=== PATIENT | female | born 1955 | race Caucasian/White ===

== ENCOUNTER 2021-12-26 07:51 | Emergency (ER) | payer BC, SELFPAY ==
[2021-12-26] VITALS (9 sets, daily range): BP systolic 121–149; BP diastolic 72–89; PULSE 70–79; RESP 16–18; TEMP 36.3; O2SAT 95–98; BMI 35.5
--- NOTE | 2021-12-26 08:30 | CRLHL7_ITS ---
For Patients: As a result of the Century Cures Act, medical imaging exams and procedure reports are released immediately into your electronic medical record. You may view this report before your referring provider. If you have questions, please contact your health care provider. INDICATION: Chest pain. TECHNIQUE: Two-view chest. COMPARISON: February 15, 2021. FINDINGS: Both lungs are expanded and clear. No pneumothoraces nodules or infiltrates. Normal heart size and pulmonary vascularity. The included skeleton is unremarkable. Surgical clips in the right upper quadrant. IMPRESSION: Negative chest. No change. Dictated by Cam Chang MD @ 12/26/2021 9:30:06 AM (Electronically Signed)
[2021-12-26] MEDS: ASPIRIN 81 MG TAB.CHEW 162 MG PO (08:50)
[2021-12-26 09:12] LABS: Basophils Absolute Auto 0.03 K/uL (0.00-0.30); Basophils Percent Auto 0.4 % (0.0-3.0); Eosinophils Absolute Auto 0.33 K/uL (0.00-0.50); Eosinophils Percent Auto 4.3 % (0.0-7.0); Hemoglobin* 12.8 gm/dL (12.0-16.0); Immature Granulocytes Abs Auto 0.01 K/uL (0.00-0.30); Lymphocytes Absolute Auto 2.41 K/uL (0.90-2.90); Lymphocytes Percent Auto 31.2 % (20-44); Mean Corpuscular HGB Conc 31 gm/dL (32-36); Mean Corpuscular Hemoglobin 27 pg (26-34); Mean Corpuscular Volume 87 fL (80-100); Monocytes Percent Auto 7.5 % (0.0-11.0); Neutrophils Absolute Auto 4.36 K/uL (1.7-7.0); Neutrophils Percent Auto 56.5 % (42.0-72.0); Platelet Count* 251 K/uL (140-440); RDW Coefficient of Variation % 13.9 % (11.5-15.5); Red Blood Count 4.69 m/uL (4.00-5.20); White Blood Count* 7.72 K/uL (4.50-11.00)
--- NOTE | 2021-12-26 09:12 | ED_ITS ---
HPI - Chest Pain General Date Seen: 12/26/21 Chief Complaint: Unspecified Complaint, Adult Stated Complaint: Chest sensation Time Seen by Provider: 12/26/21 07:54 Source: patient Mode of arrival: ambulatory Limitations: no limitations History of Present Illness HPI narrative: Patient is a 66-year-old female presents here with the history of atypical chest discomfort. She describes the feeling in her chest, she has had for weeks now, is not related to exertion, but seems to come on more at rest her least that is when she notices it. She describes it possibly across her upper chest region, she does not describe any radiation to her neck back or shoulders, it is not a pressure sensation, it is just a feeling that she gets. She does not really exert herself with exercise or other issues palm, for this she has walked is probably from her house to her car in the last couple weeks. This is not atypical for her, but she does not notices discomfort when this occurs. She notices most at night when she lays down. Denies any leg swelling, nausea vomiting diaphoresis, she has no personal history of heart disease, there is no family history of heart disease, she has not been told she has hypertension or diabetes. She is a nonsmoker. No recent travel, no leg swelling, cough no hemoptysis, no fevers chills or sweats, MD complaint: chest discomfort Prior episodes: No Onset: during rest Pain location: parasternal Pain radiation: none Severity: moderate Quality: other Relieving factors: nothing Exacerbating factors: nothing Associated symptoms: other Treatment prior to arrival: other Risk Factors Coronary artery disease risk factors: none Thoracic aortic dissection risk factors: none Related Data On Oral Contraceptives: No Home Medications Medication Instructions Recorded Confirmed amitriptyline 25 mg tablet mg 12/26/21 atorvastatin 20 mg tablet mg 12/26/21 cetirizine 10 mg tablet mg 12/26/21 cholecalciferol (vitamin D3) 50 12/26/21 mcg (2,000 unit) capsule peg 400-propylene glycol (PF) 0.4 drp OPHTHALMIC (EYE) 12/26/21 %-0.3 % eye drops in a dropperette (Systane Ultra (PF)) polyethylene glycol 3350 17 g 12/26/21 gram/dose oral powder Allergies Allergy/AdvReac Type Severity Reaction Status Date / Time Sulfa (Sulfonamide Allergy Verified 12/26/21 08:15 Antibiotics) Review of Systems Status of ROS Reports: 10 or more systems reviewed and unremarkable except as noted in History and below [facility] Social History Smoking Status: Never smoker How often do you have a drink containing alcohol: never AUDIT-C Alcohol total score: 0 Non-prescribed substance use: denies use service: No Exam Const Vital Signs, click to edit/add: Vital Signs - 24 hr 12/26/21 08:00 12/26/21 08:30 12/26/21 08:50 Temperature 97.3 F L Pulse Rate [Right Pulse Oximeter] 79 75 78 Respiratory Rate 18 18 16 Blood Pressure [Left Upper Arm] 130/89 121/78 140/83 H Pulse Oximetry 96 95 96 12/26/21 09:00 12/26/21 09:30 12/26/21 10:00 Temperature Pulse Rate [Right Pulse Oximeter] 79 73 70 Respiratory Rate 18 18 18 Blood Pressure [Left Upper Arm] 149/76 H 133/76 133/75 Pulse Oximetry 98 96 95 12/26/21 10:30 12/26/21 11:00 12/26/21 11:40 Temperature Pulse Rate [Right Pulse Oximeter] 74 76 77 Respiratory Rate 18 18 18 Blood Pressure [Left Upper Arm] 129/75 128/72 125/78 Pulse Oximetry 96 96 Documenting provider has reviewed patient's vital signs: yes Common normals: no apparent distress, average body habitus, oriented x3, no limitations, healthy appearing, alert and well nourished General appearance: cooperative and comfortable [facility] Common normals: normocephalic, head/scalp atraumatic, hearing grossly normal bilaterally, external ears normal, EAC's normal, TM's normal bilaterally, external nose normal, nasal mucous membranes and turbinates normal, moist oral mucous membranes, oropharynx normal, dentition normal and gingiva normal Head and scalp: normocephalic and atraumatic Nose: external nose normal and nasal mucous membranes and turbinates normal External ear: external ears normal External auditory canal: EAC's normal Tympanic membrane: TM's normal bilaterally Eye Common normals: PERRL, EOMs intact bilaterally, conjunctivae normal, no scleral icterus, no papilledema, normal visual peck by confrontation and fundi normal bilaterally Conjunctiva: conjunctiva(e) normal Pupil: PERRL Direct Ophthalmoscopy: no papilledema and fundi normal bilaterally Neck & C-Spine Common normals: full ROM, no lymphadenopathy, supple, no meningeal signs, no JVD, thyroid normal and no carotid bruits Thyroid: thyroid normal Chest Common normals: inspection of chest normal, palpation of chest normal, inspection of breasts normal and palpation of breasts normal Resp Common normals: normal respiratory effort, no retractions, no use of accessory muscles, clear to auscultation bilaterally and percussion normal Auscultation: clear to auscultation bilaterally Percussion: percussion normal Cardio Common normals: no JVD, regular rate, regular rhythm, S1 normal heart sound, S2 normal heart sound, no gallops, no clicks, no murmurs, no rub and peripheral pulses 2+ throughout Rate: regular rate Rhythm: regular rhythm Heart sounds: S1 normal and S2 normal Peripheral pulses: pulses 2+ throughout Extremity Common normals: normal to inspection, full ROM, normal capillary refill, no joint enlargement, no clubbing, cyanosis or edema, no calf tenderness and no pedal edema Neuro Common normals: oriented x3, CN's II-XII intact bilaterally, moves all extremities, no focal motor deficits, no sensory deficits noted, deep tendon reflexes 2+ bilaterally and gait normal Sensorium/orientation: alert Meningeal signs: no meningeal signs Psych Common normals: mental status grossly normal, thought process normal, cooperative, affect normal, speech normal, activity/motor behavior normal, d enies hallucinations, denies homicidal ideation and denies suicidal ideation Speech: normal speech Thought process: normal thought process Skin Common normals: no rashes or lesions noted, no wounds, skin turgor normal, no jaundice, no petechiae and no mottling General skin exam: no rashes or lesions noted and turgor normal Course Course Hospital Course: Patient remained pain-free the entire time here, 2 troponins were negative, D- dimer was slightly elevated but when age adjusted was normal. EKG was non acute, CBC was normal, basic metabolic profile was otherwise normal, viral testing was negative. I discussed with the patient, she should be on aspirin daily 81 mg, at least until we get a stress test. Discussed with her long-time whether to see her primary care verses is we can arrange it here. The and she really could make a decision and I elected to order a Lexiscan here. I think this will give us better delineation then a stress echo, as I would worry that she would not be able to get her heart rate up to the needed number. She has no contraindications to this. Over signs symptoms of worsening, she will re- presented, of note her heart score is low. Vital Signs Vital signs: Initial Vital Signs Temperature 97.3 F L 12/26/21 08:00 Temperature Source Temporal Artery Scan 12/26/21 08:00 Pulse Rate 79 12/26/21 08:00 Respiratory Rate 18 12/26/21 08:00 Blood Pressure 130/89 12/26/21 08:00 Blood Pressure Mean 102 12/26/21 08:00 Blood Pressure Position Sitting 12/26/21 08:00 Pulse Oximetry 96 12/26/21 08:00 Oxygen Delivery Method 12/26/21 08:00 Vital Signs Temperature 97.3 F L 12/26/21 08:00 Pulse Rate 79 12/26/21 08:00 Respiratory Rate 18 12/26/21 08:00 Blood Pressure 130/89 12/26/21 08:00 Pulse Oximetry 96 12/26/21 08:00 Temperature 97.3 F L 12/26/21 08:00 Pulse Rate 77 12/26/21 11:40 Respiratory Rate 18 12/26/21 11:40 Blood Pressure 125/78 12/26/21 11:40 Pulse Oximetry 96 12/26/21 11:00 MDM - Chest Pain MDM Narrative Medical decision making narrative: During the evaluation of this patient I considered multiple differential diagnosis is. The life-threatening differential diagnosis include coronary disease/[place], pulmonary embolism, pneumothorax, pneumonia, and aortic dissection. Other differential diagnosis included but were not limited to pericarditis, myocarditis, chest wall pain, GERD, esophageal rupture, rib fracture contusion, pleurisy, as well as other etiologies. I think it be reasonable to discharge her at this point we will order a Lexiscan is no patient, she will continue on the aspirin 81 mg and and the results will be sent to primary care physician Dr. Filomena Evangelista at the [facility] Medical Records Data Attestation: I reviewed the patient's medical records. Lab Data Attestation: I reviewed the patient's lab results. Labs: Lab Results 12/26/21 12/26/21 12/26/21 Range/Units 08:50 08:50 08:50 WBC 7.72 (4.50-11.00) K/uL RBC 4.69 (4.00-5.20) m/uL Hgb 12.8 (12.0-16.0) gm/dL Hct 41.0 (33.0-51.0) % MCV 87 (80-100) fL MCH 27 (26-34) pg MCHC 31 L (32-36) gm/dL RDW Coeff of Jose 13.9 (11.5-15.5) % Plt Count 251 (140-440) K/uL Neut % (Auto) 56.5 (42.0-72.0) % Lymph % (Auto) 31.2 (20-44) % Davis % (Auto) 7.5 (0.0-11.0) % Eos % (Auto) 4.3 (0.0-7.0) % Baso % (Auto) 0.4 (0.0-3.0) % Neut # (Auto) 4.36 (1.7-7.0) K/uL Lymph # (Auto) 2.41 (0.90-2.90) K/uL Davis # (Auto) 0.60 (0.00-0.90) K/UL Eos # (Auto) 0.33 (0.00-0.50) K/uL Baso # (Auto) 0.03 (0.00-0.30) K/uL Abs Immat Gran (auto) 0.01 (0.00-0.30) K/uL INR (0.91-1.10) APTT (23-33) Seconds D-Dimer Quant (PE/DVT) 0.54 H (0.00-0.50) ug/ml Sodium 140 (135-149) mmol/L Potassium 4.3 (3.6-5.1) mmol/L Chloride 108 (96-114) mmol/L Carbon Dioxide 26 (20-32) mmol/L BUN 12 (7-30) mg/dL Creatinine 0.7 (0.5-1.5) mg/dL Estimated Creat Clear 43.77 Estimated GFR 95 ml/min Glucose 99 (60-115) mg/dL Calcium 9.3 (8.4-10.6) mg/dL NT-Pro-B Natriuret Pep (0-125) PG/mL SARS-CoV-2 (PCR) (Negative) Influenza Type A (PCR) (Negative) Influenza Type B (PCR) (Negative) RSV (PCR) (Negative) POC Troponin I (0.01-0.04) ng/ml 12/26/21 12/26/21 12/26/21 Range/Units 08:50 08:50 08:50 WBC (4.50-11.00) K/uL RBC (4.00-5.20) m/uL Hgb (12.0-16.0) gm/dL Hct (33.0-51.0) % MCV (80-100) fL MCH (26-34) pg MCHC (32-36) gm/dL RDW Coeff of Jose (11.5-15.5) % Plt Count (140-440) K/uL Neut % (Auto) (42.0-72.0) % Lymph % (Auto) (20-44) % Davis % (Auto) (0.0-11.0) % Eos % (Auto) (0.0-7.0) % Baso % (Auto) (0.0-3.0) % Neut # (Auto) (1.7-7.0) K/uL Lymph # (Auto) (0.90-2.90) K/uL Davis # (Auto) (0.00-0.90) K/UL Eos # (Auto) (0.00-0.50) K/uL Baso # (Auto) (0.00-0.30) K/uL Abs Immat Gran (auto) (0.00-0.30) K/uL INR 0.88 L (0.91-1.10) APTT 26 (23-33) Seconds D-Dimer Quant (PE/DVT) (0.00-0.50) ug/ml Sodium (135-149) mmol/L Potassium (3.6-5.1) mmol/L Chloride (96-114) mmol/L Carbon Dioxide (20-32) mmol/L BUN (7-30) mg/dL Creatinine (0.5-1.5) mg/dL Estimated Creat Clear Estimated GFR ml/min Glucose (60-115) mg/dL Calcium (8.4-10.6) mg/dL NT-Pro-B Natriuret Pep 49 (0-125) PG/mL SARS-CoV-2 (PCR) Negative SARS-CoV-2 (Negative) Influenza Type A (PCR) Negative PCR FLU A (Negative) Influenza Type B (PCR) Negative PCR FLU B (Negative) RSV (PCR) Negative PCR RSV (Negative) POC Troponin I (0.01-0.04) ng/ml 12/26/21 12/26/21 Range/Units 08:50 10:55 WBC (4.50-11.00) K/uL RBC (4.00-5.20) m/uL Hgb (12.0-16.0) gm/dL Hct (33.0-51.0) % MCV (80-100) fL MCH (26-34) pg MCHC (32-36) gm/dL RDW Coeff of Jose (11.5-15.5) % Plt Count (140-440) K/uL Neut % (Auto) (42.0-72.0) % Lymph % (Auto) (20-44) % Davis % (Auto) (0.0-11.0) % Eos % (Auto) (0.0-7.0) % Baso % (Auto) (0.0-3.0) % Neut # (Auto) (1.7-7.0) K/uL Lymph # (Auto) (0.90-2.90) K/uL Davis # (Auto) (0.00-0.90) K/UL Eos # (Auto) (0.00-0.50) K/uL Baso # (Auto) (0.00-0.30) K/uL Abs Immat Gran (auto) (0.00-0.30) K/uL INR (0.91-1.10) APTT (23-33) Seconds D-Dimer Quant (PE/DVT) (0.00-0.50) ug/ml Sodium (135-149) mmol/L Potassium (3.6-5.1) mmol/L Chloride (96-114) mmol/L Carbon Dioxide (20-32) mmol/L BUN (7-30) mg/dL Creatinine (0.5-1.5) mg/dL Estimated Creat Clear Estimated GFR ml/min Glucose (60-115) mg/dL Calcium (8.4-10.6) mg/dL NT-Pro-B Natriuret Pep (0-125) PG/mL SARS-CoV-2 (PCR) (Negative) Influenza Type A (PCR) (Negative) Influenza Type B (PCR) (Negative) RSV (PCR) (Negative) POC Troponin I 0.00 L 0.00 L (0.01-0.04) ng/ml Imaging Data Chest x-ray: My impression: Chest x-ray shows nothing acute. Radiologist's impression: Patient: PUNEET GODFREY Facility:?[facility] Patient ID:?[id number] Site Patient ID:?[id number]. Site :?[id number] Study:?XRay Chest 2v-12/26/2021 9:24:02 AM Ordering Physician:Bret Harris Final Report: INDICATION: Chest pain. TECHNIQUE: Two-view chest. COMPARISON: February 15, 2021. FINDINGS: Both lungs are expanded and clear. No pneumothoraces nodules or infiltrates. Normal heart size and pulmonary vascularity. The included skeleton is unremarkable. Surgical clips in the right upper quadrant. IMPRESSION: Negative chest. No change. Dictated by Cam Chang MD @ 12/26/2021 9:30:06 AM (Electronic Signature) ECG Data ECG interpretation date: 12/26/21 Prior ECG tracings: not available for review Interpretation: EKG shows normal sinus rhythm normal EKG with no acute ST wave changes. Discharge Plan Discharge Clinical Impression: Chest pain Patient Disposition: Home, Self-Care Condition: Stable Instructions: Chest Pain (ED) Additional Instructions: Home, rest, easy activity, aspirin 81 mg a day. Outpatient appointment for Maureen done, follow-up with her primary care physician after this is complete. As the results will flow there. Here if increasing chest pain shortness of breath or other signs and symptoms. Activity Level: No strenuous activity Prescriptions: No Action atorvastatin 20 mg tablet 0RF cetirizine 10 mg tablet 0RF amitriptyline 25 mg tablet 0RF polyethylene glycol 3350 17 gram/dose powder 0RF Systane Ultra (PF) 0.4-0.3 % dropperette OPHTHALMIC (EYE) 0RF Label Comments: INSTILL 1 DROP INTO EACH EYE FOUR TIMES A DAY OR NEEDED cholecalciferol (vitamin D3) 50 mcg (2,000 unit) capsule 0RF Label Comments: TAKE ONE CAPSULE BY MOUTH ONE TIME DAILY Follow Up/Referrals: Generic,Amb Provider [Staff Physician] - Filomena Evangelista PA [Primary Care Provider] - Stand Alone Forms: [facility] Info Instructions
[2021-12-26 09:17] LABS: Slide Review Reflex No
[2021-12-26 09:31] LABS: INR 0.88 (0.91-1.10); Prothrombin Time 12.3 Seconds
[2021-12-26 09:32] LABS: Partial Thromboplastin Time* 26 Seconds (23-33)
[2021-12-26 09:34] LABS: Chloride* 108 mmol/L (96-114); Potassium* 4.3 mmol/L (3.6-5.1); Sodium* 140 mmol/L (135-149)
[2021-12-26 09:37] LABS: Blood Urea Nitrogen* 12 mg/dL (7-30); Carbon Dioxide* 26 mmol/L (20-32); Creatinine* 0.7 mg/dL (0.5-1.5); Est. Creatinine Clearance* 43.77; Estimated Glomerular Filt Rate 95 ml/min
[2021-12-26 09:38] LABS: Calcium* 9.3 mg/dL (8.4-10.6); Glucose* 99 mg/dL (60-115)
[2021-12-26 09:45] LABS: NT Pro B Type NatriureticPept* 49 PG/mL (0-125)
[2021-12-26 09:49] LABS: D Dimer Quantitative* 0.54 ug/ml (0.00-0.50); PCR FLU A Negative PCR FLU A (Negative); PCR FLU B Negative PCR FLU B (Negative); PCR RSV Negative PCR RSV (Negative)
[2021-12-26 09:51] LABS: SARS PCR* Negative SARS-CoV-2 (Negative)
--- NOTE | 2021-12-26 10:58 | PC.NURSE ---
second trop running per order verbal Dr Alcazar
== END 2021-12-26 11:44 | disposition home or self-care (01) ==
PROVIDERS: Emergency Provider Family Medicine; PCP Physician Assistant
DX: R07.9 Chest pain, unspecified (principal)
CPT/HCPCS: 36415; 71046; 80048; 83880; 84484; 85025; 85379; 85610; 85730; 87502; 87634; 87635; 93005; 99285; A9270

== ENCOUNTER 2022-01-09 20:38 | Outpatient (REF) | payer BC, SELFPAY ==
[2022-01-09 21:19] LABS: SARS PCR* Negative SARS-CoV-2 (Negative)
== END 2022-01-09 20:39 | disposition home or self-care (01) ==
LOC: NPINS 20:38
PROVIDERS: PCP Physician Assistant; Visit Provider Internal Medicine
DX: Z20.822 Contact with and (suspected) exposure to COVID-19 (principal)
CPT/HCPCS: 87635

== ENCOUNTER 2022-01-12 21:00 | Outpatient (CLI) | payer BC, SELFPAY | END 2022-01-12 21:01 | disposition home or self-care (01) | LOC: SLEEP 06-16 10:23 | PROVIDERS: PCP Physician Assistant; Visit Provider Nurse Practitioner | DX: R06.83 Snoring (principal); G47.61 Periodic limb movement disorder; R53.83 Other fatigue; Z86.69 Personal history of other diseases of the nervous system and sense organs | CPT/HCPCS: 95810 ==

== ENCOUNTER 2023-02-17 22:40 | Emergency (ER) | payer BC, SELFPAY ==
[2023-02-17 23:06] VITALS: BP 132/83; PULSE 93; TEMP 36.1; O2SAT 97; BMI 34.8
[2023-02-17 23:11] VITALS: RESP 20
--- NOTE | 2023-02-17 23:22 | ED.GENADULT ---
HPI - General Adult General Chief complaint: Skin/Abscess/Foreign Body Stated complaint: needs wound checked Time Seen by Provider: 02/17/23 23:20 History of Present Illness HPI narrative: Pt had a skin biopsy on 02/10 with sutures placed and steri stripes in place. Per D /C information given to ptdetailed instructions given to pt on how to take care of biopsy site- paperwork at bedside. Pt states I cannot take care of the site or see it that well Pt would like site to be looked at and possibly be cleansed and changed. 67-year-old woman presenting to the emergency department wanting assistance with wound care. A neighbor has assisted her with dressing changes. She has purchased some Tegaderm to place over the top of what on exam appears to be a large Steri-Strips. Just wants to have somebody evaluate this wound. Has been having cancerous or precancerous lesions excised. Is apparently to go for more excision in other sites. Managed to wash her hair by placing Tegaderm over this wound. No new pain or drainage. Related Data Home Medications Medication Instructions Recorded Confirmed amitriptyline 25 mg tablet mg 12/26/21 atorvastatin 20 mg tablet mg 12/26/21 cetirizine 10 mg tablet mg 12/26/21 cholecalciferol (vitamin D3) 50 12/26/21 mcg (2,000 unit) capsule peg 400-propylene glycol (PF) 0.4 drp ophthalmic (eye) 12/26/21 %-0.3 % eye drops in a dropperette (Systane Ultra (PF)) polyethylene glycol 3350 17 g 12/26/21 gram/dose oral powder Allergies Allergy/AdvReac Type Severity Reaction Status Date / Time Sulfa (Sulfonamide Allergy Verified 02/17/23 23:10 Antibiotics) Review of Systems Status of ROS: Reports: 6 or more systems reviewed and unremarkable except as noted in History and below [facility] Surgical History (Updated 12/29/21 @ 12:25 by Ольга Constantino) History of cholecystectomy ?Z90.49 - Acquired absence of other specified parts of digestive tract (ICD-10) Social History Smoking Status: Never smoker How often do you have a drink containing alcohol: never AUDIT-C Alcohol total score: 0 Non-prescribed substance use: denies use service: No Exam Narrative: Exam Narrative: Pleasant. NAD. Breathing easily. Presents with her dressing supplies and instructions for follow-up care. Has a knee sleeve on. Examination of the wound in question at the right posterior shoulder shows a well-healing surgical incision with what looks to be a running Ethilon suture. A little pink at the outer aspect. Looks well healed. This is visible though after removal of Tegaderm which has been placed over what may have been a derma bonded 3 quarter-inch Steri-Strip covering the entire incision. I did remove all dressings. Placed a dry Band-Aid over the top after cleansing broader area with an alcohol pad. Const: Vital Signs, click to edit/add: Vital Signs - 24 hr 02/17/23 23:06 02/17/23 23:11 Temperature 97 F L Pulse Rate [Pulse Oximeter] 93 Respiratory Rate 20 Blood Pressure [Ri ght Upper Arm] 132/83 Pulse Oximetry 97 Oxygen Delivery Me thod Room Air Documenting provider has reviewed patient's vital signs: yes Course Vital Signs Vital signs: Initial Vital Signs Temperature 97 F L 02/17/23 23:06 Temperature Source Temporal Artery Scan 02/17/23 23:06 Pulse Rate 93 02/17/23 23:06 Pulse Rhythm Regular 02/17/23 23:06 Blood Pressure 132/83 02/17/23 23:06 Blood Pressure Mean 99 02/17/23 23:06 Pulse Oximetry 97 02/17/23 23:06 Oxygen Delivery Method Room Air 02/17/23 23:06 Vital Signs Temperature 97 F L 02/17/23 23:06 Pulse Rate 93 02/17/23 23:06 Blood Pressure 132/83 02/17/23 23:06 Pulse Oximetry 97 02/17/23 23:06 Oxygen Delivery Method Room Air 02/17/23 23:06 Temperature 97 F L 02/17/23 23:06 Pulse Rate 93 02/17/23 23:06 Respiratory Rate 20 02/17/23 23:11 Blood Pressure 132/83 02/17/23 23:06 Pulse Oximetry 97 02/17/23 23:06 Oxygen Delivery Method Room Air 02/17/23 23:06 Medical Decision Making MDM Narrative Medical decision making narrative: Dressing changed as above. Appears to be healing well. I think can move toward drying out the wound anticipating suture removal in a week. See patient discharge plan Discharge Plan Discharge Clinical Impression: Encounter for wound care Patient Disposition: Home, Self-Care Condition: Improved Additional Instructions: I think can just change dressing by covering with a dry Band-Aid over the next few days. After 3 or 4 more days probably do not need to cover it anymore. Okay to get it wet but as long as the sutures are in, avoid soaking the area. If you anticipate a period of time where it might be soaking in water, go ahead and cover it for that period of time with your Tegaderm. Prescriptions: No Action atorvastatin 20 mg tablet cetirizine 10 mg tablet amitriptyline 25 mg tablet polyethylene glycol 3350 17 gram/dose powder Systane Ultra (PF) 0.4-0.3 % dropperette OPHTHALMIC (EYE) Patient Comments: INSTILL 1 DROP INTO EACH EYE FOUR TIMES A DAY OR NEEDED cholecalciferol (vitamin D3) 50 mcg (2,000 unit) capsule Patient Comments: TAKE ONE CAPSULE BY MOUTH ONE TIME DAILY Follow Up/Referrals: Filomena Evangelista PA [Referring] - Stand Alone [facility] Instructions
== END 2023-02-18 00:01 | disposition home or self-care (01) ==
PROVIDERS: Emergency Provider Family Medicine; PCP Family Medicine
DX: Z48.01 Encounter for change or removal of surgical wound dressing (principal)
CPT/HCPCS: 99282; 99283

== ENCOUNTER 2023-05-08 19:21 | Emergency (ER) | payer BC, SELFPAY ==
[2023-05-08 19:32] VITALS: BP 148/81; PULSE 94; RESP 16; TEMP 36.7; O2SAT 98
--- NOTE | 2023-05-08 19:37 | ED_ITS ---
HPI - General Adult General Chief complaint: Unspecified Complaint, Adult Stated complaint: Swollen gland Time Seen by Provider: 05/08/23 19:37 History of Present Illness HPI narrative: pt reports a swollen parotid gland, right side. Found in January. Pt states, it's not right, I use lemon drops to help. pt was at [facility] on the 6th of this month. 67-year-old woman presenting to the emergency department with concern of a lump associated with her parotid gland on the right side. On February 26 was evaluated with fullness here or lump as she describes and recommended for sialagogues. She did not have significant pain at that time. She has not had any fever. No infectious prodrome to this. No dental problems. No swallowing difficulties other than just recently has a little bit of a sore throat perhaps. Has been taking guaifenesin-dextromethorphan for congestive symptoms. She is anticipating leaving town for the holidays and is worried that something might happen, that it might get worse. She would describe it as essentially unchanged since 02/26. Describes herself numerous times as being a ?worrier?. Related Data Home Medications Medication Instructions Recorded Confirmed amitriptyline 25 mg tablet mg 12/26/21 05/04/23 atorvastatin 20 mg tablet mg 12/26/21 05/04/23 cetirizine 10 mg tablet mg 12/26/21 05/04/23 cholecalciferol (vitamin D3) 50 12/26/21 05/04/23 mcg (2,000 unit) capsule peg 400-propylene glycol (PF) 0.4 drp ophthalmic (eye) 12/26/21 05/04/23 %-0.3 % eye drops in a dropperette (Systane Ultra (PF)) polyethylene glycol 3350 17 g 12/26/21 05/04/23 gram/dose oral powder Allergies Allergy/AdvReac Type Severity Reaction Status Date / Time Sulfa (Sulfonamide Allergy Verified 05/04/23 18:55 Antibiotics) Review of Systems Status of ROS: Reports: 6 or more systems reviewed and unremarkable except as noted in History and below [facility] Surgical History History of cholecystectomy ?Z90.49 - Acquired absence of other specified parts of digestive tract (ICD- 10) Social History Smoking Status: Never smoker How often do you have a drink containing alcohol: never AUDIT-C Alcohol total score: 0 Non-prescribed substance use: denies use service: No Exam Narrative: Exam Narrative: Pleasant. NAD. Regularly she is rubbing the right posterior jaw area, palpating. Irritation in the far posterior oropharynx I think consistent with postnasal drip. She is congested in the nasopharynx general. No facial swelling erythema or tenderness. No cellulitic change. I cannot appreciate any discrete swelling or any lymphadenopathy about either parotid or into the neck. She is subtly more full to palpation perhaps on the right angle of the jaw area than the left and similar regard to external visualization asymmetry. No tenderness appreciable anywhere. I cannot appreciate the lump that she notes is present posterior to the angle of the right jaw. Sclera is somewhat injected as if has recently been tearful or not sleeping well. Const: Vital Signs, click to edit/add: Vital Signs - 24 hr 05/08/23 19:32 Temperature 98.0 F Pulse Rate [Left P ulse Oximeter] 94 Respiratory Rate 16 Blood Pressure [Ri ght Upper Arm] 148/81 H Pulse Oximetry 98 Oxygen Delivery Me thod Room Air Documenting provider has reviewed patient's vital signs: yes Course Vital Signs Vital signs: Initial Vital Signs Temperature 98.0 F 05/08/23 19:32 Temperature Source Oral 05/08/23 19:32 Pulse Rate 94 05/08/23 19:32 Pulse Rhythm Regular 05/08/23 19:32 Respiratory Rate 16 05/08/23 19:32 Blood Pressure 148/81 H 05/08/23 19:32 Blood Pressure Mean 103 05/08/23 19:32 Blood Pressure Position Sitting 05/08/23 19:32 Pulse Oximetry 98 05/08/23 19:32 Oxygen Delivery Method Room Air 05/08/23 19:32 Vital Signs Temperature 98.0 F 05/08/23 19:32 Pulse Rate 94 05/08/23 19:32 Respiratory Rate 16 05/08/23 19:32 Blood Pressure 148/81 H 05/08/23 19:32 Pulse Oximetry 98 05/08/23 19:32 Oxygen Delivery Method Room Air 05/08/23 19:32 Temperature 98.0 F 05/08/23 19:32 Pulse Rate 94 05/08/23 19:32 Respiratory Rate 16 05/08/23 19:32 Blood Pressure 148/81 H 05/08/23 19:32 Pulse Oximetry 98 05/08/23 19:32 Oxygen Delivery Method Room Air 05/08/23 19:32 Medical Decision Making MDM Narrative Medical decision making narrative: Able to locate and reviewed clinic note noting fullness in the inferior pole of the parotid but apparently painless at that time. Was recommended to ENT if unresolving Differential does include parotitis, worried well, malignancy with associated lymph node swelling, draining lesion with associated lymphadenopathy that might be higher up the chain perhaps in the scalp, radicular sensation from throat or elsewhere. Discussed that I simply cannot appreciate the lump that she is referring to beyond what I have described above. Would offer reassurance at this time. I have no further recommendations at this time beyond recommendations to stop rubbing this area and treatment of head cold and associated mild pharyngitis that I think is probably more related to postnasal drip. See patient discharge plan Discharge Plan Discharge Clinical Impression: Head cold, Worried well Patient Disposition: Home, Self-Care Condition: Stable Additional Instructions: I just can not feel a nodule or significant asymmetry between your parotid glands. Furthermore you're not really tender or swollen or inflamed otherwise. I do not think you need to keep taking the lemon drops unless you like them. Since it has been relatively unchanged since February 26, I do not think anything is going to happen quickly. If it does happen quickly and you are suddenly more swollen painful red, we can treat that. I would be seen at that time. If this though seems to continue to bother you in another 4 weeks or so, you might want to schedule an appointment with ENT as discussed; Dr. Mendoza is our affiliated ENT surgeon. You were describing some sore throat. This can be because of heartburn/reflux, postnasal drip from your head cold, infectious pharyngitis. At this point I favor some cause by postnasal drip. You can continue to take up to 20 mL per dose of either of the cough medicines you showed me. Pseudoephedrine would probably be more effective for drying and decongestion and therefore might help your cough/sore throat. Anesthetic throat lozenges or sprays like Sucrets or Chloraseptic might be helpful. Otherwise focus on hydration. Consider sleeping under the mist of a cool mist humidifier. Menthol vapors might be helpful. I hope you have a rosa holiday. Prescriptions: No Action atorvastatin 20 mg tablet cetirizine 10 mg tablet amitriptyline 25 mg tablet polyethylene glycol 3350 17 gram/dose powder Systane Ultra (PF) 0.4-0.3 % dropperette OPHTHALMIC (EYE) Patient Comments: INSTILL 1 DROP INTO EACH EYE FOUR TIMES A DAY OR NEEDED cholecalciferol (vitamin D3) 50 mcg (2,000 unit) capsule Patient Comments: TAKE ONE CAPSULE BY MOUTH ONE TIME DAILY Follow Up/Referrals: Nandini Smallwood, [Primary Care Provider] - Stand Alone Forms: [facility] Info Instructions
== END 2023-05-08 21:50 | disposition home or self-care (01) ==
PROVIDERS: Emergency Provider Family Medicine; PCP Family Medicine
DX: Z71.1 Person with feared health complaint in whom no diagnosis is made (principal)
CPT/HCPCS: 99283; 99284

== ENCOUNTER 2023-10-25 19:10 | Emergency (ER) | payer BC, SELFPAY ==
[2023-10-25 19:21] VITALS: BP 151/77; PULSE 84; RESP 16; TEMP 36.6; O2SAT 97; BMI 34.8
--- NOTE | 2023-10-25 19:47 | ED.GENADULT ---
HPI - General Adult General Date Seen: 10/25/23 Chief complaint: Unspecified Complaint, Adult Stated complaint: Sinus and chest congestion Time Seen by Provider: 10/25/23 19:46 History of Present Illness HPI narrative: This is a pleasant 67-year-old woman presenting to the ER today for evaluation of cough, nasal congestion and nasal drainage. She has a past medical history of hiatal hernia, thyroid nodule, zoster with post herpetic neuralgia. She is a nonsmoker. No known history of asthma or COPD. She recalls that she did have a productive cough in May while she was visiting her family in [place]. She apparently saw a provider in [place] who diagnosed her with bronchitis. She says they gave her a nebulizer in the clinic and then sent her home with a 5 day prescription for prednisone (also Tessalon for cough). She did not decided not to take the prescribed medications because she wanted to talk to her doctors here in [place] . It sounds like that cough got better and she never did have follow-up for it. Unclear if she truly had bronchitis or some other diagnosis. She does not think she had a chest x-ray Her current illness began about 13 or 14 days ago shortly after mother's Day. She recalls that she was around her 14-year-old granddaughter who had a cold and had to stay home from school for couple of days. Symptoms began with copious bilateral clear nasal drainage and then developed into ongoing nasal drainage, ongoing cough. Cough is sometimes productive of sputum which is sometimes yellow and sometimes white. She went into the [facility] clinic a week or 2 ago that apparently had a viral test that was negative for COVID. She was given 2 nasal sprays to use for both his presumed to be viral or allergic phenomenon. She has been using them twice a day. She feels like her nasal drainage and cough is not got any better. He she went to the urgent care in [place] last week and had another COVID test that was again negative. Unclear what came of that visit. She has been at home since then. She came to the ER today because her nasal congestion and cough are not getting better. She was not sure how long she should wait for she followed up with her primary care doctor. Sick with she is not having any chest pain or shortness of breath. No hemoptysis. No fever chills. She is not really having any facial pain. No sore throat. She does have intermittent headaches which she describes as mild. No nausea or vomiting. Related Data Home Medications ?Medication ?Instructions ?Recorded ?Confirmed amitriptyline 25 mg tablet mg 12/26/21 05/04/23 atorvastatin 20 mg tablet mg 12/26/21 05/04/23 cetirizine 10 mg tablet mg 12/26/21 05/04/23 cholecalciferol (vitamin D3) 50 12/26/21 05/04/23 mcg (2,000 unit) capsule peg 400-propylene glycol (PF) 0.4 drp ophthalmic (eye) 12/26/21 05/04/23 %-0.3 % eye drops in a dropperette (Systane Ultra (PF)) polyethylene glycol 3350 17 g 12/26/21 05/04/23 gram/dose oral powder azelastine 137 mcg (0.1 %) nasal intranasal 10/25/23 spray aerosol fluticasone propionate 50 spray intranasal 10/25/23 mcg/actuation nasal spray,suspension Allergies Allergy/AdvReac Type Severity Reaction Status Date / Time Sulfa (Sulfonamide Allergy Verified 05/04/23 18:55 Antibiotics) PFSH [facility] Surgical History History of cholecystectomy ?Z90.49 - Acquired absence of other specified parts of digestive tract (ICD-10) Social History Smoking Status: Never smoker Do you use any of these nicotine containing products: None Second hand tobacco smoke exposure: No How often do you have a drink containing alcohol: never AUDIT-C Alcohol total score: 0 Non-prescribed substance use: denies use service: No Exam Narrative: Exam Narrative: Constitutional: Appears well-developed and well-nourished. Alert. Conversant, but she can be a disjointed historian. Very pleasant. Occasional wet sounding but nonproductive cough. Non toxic. HENT: Head: Atraumatic. Nose: Externally normal. She does have nonpurulent rhinorrhea bilaterally. No mucosal edema. No bleeding. No signs of any polyps. Mastoids, ear canals, tympanic membranes are normal bilaterally Mouth/Throat: Oral mucosa is clear and moist. no trismus. Pharynx normal. Tonsils symmetric. No tonsillar enlargement, erythema, or exudate. Eyes: Conjunctivae normal. EOM normal. Pupils equal, round, and reactive to light. No scleral icterus. Neck: Normal range of motion. Neck supple. No tracheal deviation present. Cardiovascular: Normal rate, regular rhythm. No gallop. No friction rub. No murmur heard. Symmetric radial artery pulses Pulmonary/Chest: Effort normal. Occasional cough. No stridor. No respiratory distress. No wheezes. No rales. No rhonchi . No tenderness. Musculoskeletal: RUE: Normal range of motion. No tenderness. No deformity LUE: Normal range of motion. No tenderness. No deformity RLE: Normal range of motion. No edema. No tenderness. No deformity LLE: Normal range of motion. No edema. No tenderness. No deformity Lymph: No cervical adenopathy. Neurological: Alert and oriented to person, place, and time. Normal strength. CN II-VII intact. No sensory deficit. GCS eye subscore is 4. GCS verbal subscore is 5. GCS motor subscore is 6. Normal coordination Skin: Skin is warm and dry. No rash noted. No pallor. Normal capillary refill. Psychiatric: Normal mood. Normal affect. Very polite. Const: Vital Signs, click to edit/add: Vital Signs - 24 hr 10/25/23 19:21 Temperature 97.9 F Pulse Rate [Pulse Oximeter] 84 Respiratory Rate 16 Blood Pressure [Ri ght Upper Arm] 151/77 H Pulse Oximetry 97 Oxygen Delivery Me thod Room Air Course Vital Signs Vital signs: Initial Vital Signs Temperature 97.9 F 10/25/23 19:21 Temperature Source Temporal Artery Scan 10/25/23 19:21 Pulse Rate 84 10/25/23 19:21 Respiratory Rate 16 10/25/23 19:21 Blood Pressure 151/77 H 10/25/23 19:21 Blood Pressure Mean 101 10/25/23 19:21 Blood Pressure Position Sitting 10/25/23 19:21 Pulse Oximetry 97 10/25/23 19:21 Oxygen Delivery Method Room Air 10/25/23 19:21 Vital Signs Temperature 97.9 F 10/25/23 19:21 Pulse Rate 84 10/25/23 19:21 Respiratory Rate 16 10/25/23 19:21 Blood Pressure 151/77 H 10/25/23 19:21 Pulse Oximetry 97 10/25/23 19:21 Oxygen Delivery Method Room Air 10/25/23 19:21 Temperature 97.9 F 10/25/23 19:21 Pulse Rate 84 10/25/23 19:21 Respiratory Rate 16 10/25/23 19:21 Blood Pressure 151/77 H 10/25/23 19:21 Pulse Oximetry 97 10/25/23 19:21 Oxygen Delivery Method Room Air 10/25/23 19:21 Medications Administered Medications: Discontinued Medications Generic Name Dose Route Start Last Admin Trade Name Saul PRN Reason Stop Dose Admin Acetaminophen 1,000 mg 10/25/23 21:03 10/25/23 21:09 Acetaminophen 500 Mg Tablet PO 10/25/23 21:04 1,000 mg ONCE ONE Administration Medical Decision Making MDM Narrative Medical decision making narrative: This patient presents for evaluation of nasal congestion, nasal drainage, mild headache, and productive cough. Symptoms have now been ongoing for almost 2 weeks. She has already been to her doctor into the Urgent Care and inject twice for coronavirus and influenza so we did not repeat viral testing here today.. There is no signs at this point of serious bacterial infection such as OM, RPA, epiglottitis, [employer], strep pharyngitis, pneumonia, sinusitis, meningitis, bacteremia, serious bacterial infection. Her lung exam is clear today. I do not detect any wheezing or bronchospasm to suggest bronchitis or viral induced reactive airway disease. At this point I think she would benefit from nebulizers or steroids. Given the duration of her cough we did do a chest x-ray to look for pneumonia and is negative. None the less than a 67-year-old female with a protracted course of cough I do think we should put her on antibiotics. Will start doxycycline 100 mg b.i.d. for 7 days. She is not hypoxic, having any chest pain, altered mental status, and she has stable vital signs here. She does not require hospitalization. There are no gastrointestinal symptoms at this point and no signs of dehydration. Close followup with primary care physician is indicated. She also questions whether not she is getting any benefit from the prescribed nasal steroids. Discussed with her that they may be beneficial but it may also be reasonable just to stop for a couple of days to see how symptoms change. Discussed return precautions to the ER. Questions answered to the best my ability. Imaging Data Chest x-ray: Attestation: I have reviewed the pertinent imaging results. My impression: Normal cardiac silhouette. Normal mediastinum. Clear lungs peck. No focal infiltrates. No pulmonary edema. No rib fractures. No pleural effusions. Radiologist's impression: IMPRESSION: 1. No acute cardiopulmonary disease is seen. Discharge Plan Discharge Clinical Impression: Cough, Nasal congestion Patient Disposition: Home, Self-Care Condition: Stable Instructions: Acute Cough (ED) Additional Instructions: As we discussed, please come back to the ER right away if you have worsening symptoms; especially trouble breathing, chest pain, high fever, weakness, or worsening cough. If you are not better within the next 3-4 days, please recheck with your doctor is [facility] (or come back to the ER) Your chest x-ray looks clear tonight. No definitive evidence for pneumonia. Were going to put joint antibiotic to treat for possible bacterial sinus infection or other bacterial cause of your cough. Avoid sun exposure while you are takin this antibiotic. Prescriptions: No Action atorvastatin 20 mg tablet cetirizine 10 mg tablet amitriptyline 25 mg tablet polyethylene glycol 3350 17 gram/dose powder Systane Ultra (PF) 0.4-0.3 % dropperette OPHTHALMIC (EYE) Patient Comments: INSTILL 1 DROP INTO EACH EYE FOUR TIMES A DAY OR NEEDED cholecalciferol (vitamin D3) 50 mcg (2,000 unit) capsule Patient Comments: TAKE ONE CAPSULE BY MOUTH ONE TIME DAILY azelastine 137 mcg (0.1 %) aerosol,spray INTRANASAL Patient Comments: [NO ORIGINAL SIG] fluticasone propionate 50 mcg/actuation spray,suspension INTRANASAL Follow Up/Referrals: Nandini Smallwood DO [Primary Care Provider] - Stand Alone [facility]
--- NOTE | 2023-10-25 20:26 | CRLHL7_ITS ---
For Patients: As a result of the Cures Act, medical imaging exams and procedure reports are released immediately into your electronic medical record. You may view this report before your referring provider. If you have questions, please contact your health care provider. INDICATION: Cough TECHNIQUE: Chest radiograph 2 views COMPARISON: None FINDINGS: Mediastinum: The mediastinum is normal in appearance. The heart silhouette is normal in size and morphology. A small gastric hernia is noted. Lung: Both lungs are unremarkable in appearance. No sign of pleural effusion seen. No pneumothorax is identified. Bone and Soft tissue: Unremarkable for age. IMPRESSION: 1. No acute cardiopulmonary disease is seen. Dictated by: Tobi Vidal MD @ 10/25/2023 21:09:10 (Electronically Signed)
--- OUTSIDE RECORDS SUMMARY | 2023-10-25 20:41 | XMS_ITS | Clinical Summary ---
Author Organization [facility] Address [place], [place] [address] Care Team Providers Care Paper Twister Name Role Phone Nandini Smallwood Primary Care Provider [phone] Allergies Active Allergy Reactions Criticality Noted Date Comments Latex Rash 01/13/2013 pt preference Sulfa (Sulfonamide Antibiotics) Other - Describe In Comment Field 12/08/2006 sulfa eye drops cause eye redness Sulfacetamide Corneal Opacities High 12/08/2006 sulfa eye drops cause eye redness Medications Medication Sig Dispensed Refills Start Date End Date Status artificial tears, peg 400-propylene glycol, (SYSTANE ULTRA) 0.4-0.3 % drop ophthalmic Place 1 Drop into both eyes. 0.1 mL 9 Active miscellaneous medical supply miscIndications:Per ipheral edema JOBST 15-20 COMP. ULTRA SHEER NATURAL SIZE LARGE #119403 2 Units 9 Active pjpamsxh-luxu-LN-ca lcium-mins 18 mg iron-400 mcg-500 mg Ca tab Take by mouth. 0 9 Active durable medical equipment (DME)Indications:Hi story of peripheral edema Device to assist with application of compression stockings. 1 Each 0 Active Zhyql-7-CRG-EPA-Fis h Oil 1,000 mg (120 mg-180 mg) capIndications:Mixe d hyperlipidemia Take 1 Capsule (1,000 mg) by mouth once daily. 90 Capsule 3 2 Active nystatin (MYCOSTATIN) creamIndications:Sk in yeast infection Apply topically to affected area(s) two times daily. 30 g 1 2 Active Additional Information Patient taking differently:TopicalDAILY PRN, Reported on 02/08/2023 atorvastatin (LIPITOR) 20 mg tabletIndications:M ixed hyperlipidemia Take 1 Tablet (20 mg) by mouth at bedtime. 90 Tablet 3 3 Active cholecalciferol (VITAMIN D3) 2,000 unit capsuleIndications: Vitamin D deficiency TAKE ONE CAPSULE BY MOUTH EVERY DAY 90 Capsule 3 3 Active Graduated Compression StockingsIndication s:Bilateral lower extremity edema KNEE HIGH 15-20MMHG LARGE PETITE NATURAL CAT#[id number] 4 Each 1 4 Active Graduated Compression StockingsIndication s:Bilateral lower extremity edema KNEE HIGH 15-20MMHG LARGE PETITE NATURAL CAT#[id number] 4 Each 1 4 Active polyethylene glycoL (MIRALAX) 17 gram/scoop powderIndications:C hronic constipation MIX 17 GRAMS OF POWDER IN 8OZ OF WATER, JUICE, SODA, COFFEE, OR TEA AND DRINK ONCE DAILY 1530 g 2 4 Active Allergy Relief, cetirizine, 10 mg tabletIndications:S easonal allergies TAKE ONE TABLET BY MOUTH ONCE EVERY DAY 90 Tablet 2 4 Active amitriptyline (ELAVIL) 25 mg tabletIndications:I nsomnia, idiopathic TAKE ONE TABLET BY MOUTH AT BEDTIME 90 Tablet 4 Active fluticasone (50 mcg per actuation) nasal solution (FLONASE)Indication s:Rhinitis, unspecified type Inhale 2 Sprays to both nostrils once daily. 16 g 4 Active azelastine 137 mcg/actuation (ASTELIN) nasal sprayIndications:Rh initis, unspecified type Inhale 1 Iron into affected nostril(s) two times daily. 30 mL 4 Active amitriptyline (ELAVIL) 25 mg tabletIndications:I nsomnia, idiopathic Take 1 Tablet (25 mg) by mouth at bedtime. 90 Tablet 3 3 10/04/19 24 Discontinued Active Problems Problem Noted Date Diagnosed Date History of colon polyps 11/25/2022 Osteopenia 03/04/2021 Overview: Bone density February 2021. Repeat 3-5 years. 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 04/08/2009 Blepharitis, unspecified 12/12/2008 Overview: right > left Major depressive disorder, recurrent episode, mi ld 01/12/2007 Mixed hyperlipidemia 01/12/2007 Resolved Problems Problem Noted Date Diagnosed Date Resolved Date Anemia 02/20/2013 05/22/2013 Overview: Mild; suspect due to recent surgery; will recheck in 3 months. 02/20/2013 Cystocele 10/17/2012 02/20/2013 Overview: Bulges out when standing; inhibits walking. Abdominal bloating 02/29/2012 3 Rectocele 02/29/2012 02/20/2013 Overview: Grade 2; asymptomatic Routine general medical exam ination at a health care facility 01/12/2007 05/22/2013 Other specified disorder of bladder 12/14/2006 12/12/2008 Encounters Date Type Department Care Team Description 10/15/2023 6:50 PM CDT Office Visit [facility] [address] [place] [address] Gisella Santizo, RAY Cough (seen in clinic 2 days ago/with sore throat/runny nose , didn't listen to my lungs my chest is rattling) 10/15/2023 Travel 10/15/2023 Nurse Triage [address] [address] Nandini Smallwood, DO Cough 10/13/2023 1:40 PM CDT Office Visit [address] [address] Zeina Jordan PA Sinus Problem (Constant runny nose since yesterday - irritated throat, fatigue) 10/13/2023 Travel 10/01/[address] [address] Filomena Evangelista PA Refill Request (Amitriptyline) 09/29/2023 11:00 AM CDT Ancillary Procedure [address] [address] 09/29/2023 Travel 09/13/[address] [address] Nandini Smallwood, Refill Request (Allergy Relief (Cetirizine)) 09/02/[address] [address] Filomena Evangelista PA Refill Request (Polyethylene Glycol) 08/11/[address] [address] Nandini Smallwood, Medication Management 08/09/[address] [address] Filomena Evangelista PA Refill Request 08/09/[address] [address] Nandini Smallwood, DME Supply (Compression Stockings) from Last 3 Months Immunizations Name Administration Dates Next Due COVID-19 Vaccine Spikevax (M oderna 50mcg/0.5mL) 12YO+ [id number] Formula PF 04/02/2023 COVID-19 vaccine (Moderna 100mcg/0.5mL) PF, MDV 10/24/2020,09/26/2020 COVID-19 vaccine (Pfizer-Bio NTech 30mcg/0.3mL) 12YO+ BIVALENT PF, MDV 12/02/2022 Hepatitis B (Adult) 02/03/2001,08/18/2000,1999 Influenza, IIV3 (Age 6-35 mos) 03/04/2011,2008 Influenza, IIV3 (Age >=3 years) 02/21/20 13,02/29/2012,03/04/2011,2009,04/04/2009 Influenza, IIV4 02/19/2021, 0,02/09/2019,2017,04/07/2017,05/29/2016,03/05/2015,0 02/21/2014,02/20/2013,02/29/2012, 011,02/21/2010,04/04/2009 Influenza, Inactivated AIIV4 (Age 65+ Years) Preserv Free 02/08/2023,02/09/2022,02/19/2021 MMR 10/08/1971 Pneumococcal Conj 20-valent (Prevnar 20) 08/05/2022 Pneumococcal Poly,23-Valent (Pneumovax) 02/19/2021 Td (Age >=7 Years) 12/31/1999 Td, Preservative Free (age > = 7 Years) 12/31/1999 Tdap 11/01/2019,08/15/2009 Tuberculin (PPD) 02/15/2002,09/19/1997 Zoster (Shingrix-RZV, recombinant) 07/03/2021, Family History Medical History Relation Name Comments No Known Problems Daughter Cancer-colon Father Abdirizak Heart Disease Father Abdirizak after age 55 Cancer-breast Maternal Aunt 1 Cancer Maternal Aunt 2 stomach Kidney disease Mother Diane Lupus Mother Diane Other Mother Diane varicose veins Cancer Other Cousin-pancreat ic Cancer-breast Other cousin Seizures Sister 1 Shaniqua Asthma Sister 2 Abimbola Drug Abuse Son 1 from overd ose No Known Problems Son 2 Anesthesia Problem No Family History Blood Disease No Family History Cancer-ovarian No Family History Relation Name Status Comments Daughter Alive Father Abdirizak (Age 72) Maternal Aunt 1 Maternal Aunt 2 Mother Diane Other Sister 1 Shaniqua (Age 25) Sister 2 Abimbola Son 1 Son 2 Alive Social History Tobacco Use Types Packs/Day Years Used Date Smoking Tobacco: Never Passive Smoke Exposure: Never Smokeless Tobacco: Never Tobacco Cessation:Counseling Given: Not Answered Alcohol Use Standard Drinks/Week Comments Not Currently 0 (1 standard drink = 0.6 oz pur e alcohol) PHQ-2 Answer Date Recorded PHQ-2 TOTAL SCORE 2 08/19/2022 Social Connections Answer Date Recorded Frequency of Communication with Friends and Fami ly 0 02/08/2023 Financial Resource Strain Answer Date R ecorded Difficulty of Paying Living Expenses 3 02/08/2023 Difficulty of Paying Living Expenses Not on file 02/08/2023 Food Insecurity Answer Date Recorded Worried About Running Out of Food in the Last Ye ar 1 02/08/2023 Transportation Needs Answer Date Record ed Lack of Transportation (Medical) 1 02/08/2023 Housing Stability Answer Date Recorded Unable to Pay for Housing in the Last Year 1 02/08/2023 Sex and Gender Information Value Date Recorded Sex Assigned at Not on file Gender Identity Not on file Sexual Orientation Not on file Obstetrics History Para Term AB IAB SAB Ectopic Multiple Livin g Live Births 4 3 1 1 3 Date Outcome GA Total Labor Labor/2nd/3rd Weight Sex Delivery Anes PTL Chelsea A1 A5 Name Cl in Para Comments:Toxemia Para Para SAB Last Filed Vital Signs Vital Sign Reading Time Taken Comments Blood Pressure 147/72 10/15/2023 7:00 PM CDT Pulse 94 10/15/2023 7:00 PM CDT Temperature 36.6 ??C (97.9 ??F) 10/15/2023 7:00 PM CD T Respiratory Rate 18 10/15/2023 7:00 PM CDT Oxygen Saturation 95% 10/15/2023 7:00 PM CDT Inhaled Oxygen Concentration - - Weight 89.4 kg (197 lb) 10/15/2023 7:00 PM CDT Height 157.5 cm (5' 2.01) 02/26/2023 3:23 PM CD T Body Mass Index 36.02 02/26/2023 3:23 PM CDT Plan of Treatment Upcoming Encounters Date Type Department Care Team (Late st Contact Info) Description 10/28/2023 2:00 PM CDT Office Visit [facility] [[email or web address] [address] [place] [address] Nandini Smallwood DO [address] [place] [address] Health Maintenance Due Date Last Done Comments Depression screening for age 12+ 08/20/2023 08/19/2022, 08/19/2022, 08/05/2022, Additional history exists Medicare Wellness for age 65+ 08/20/2023 08/19/2022, 02/19/2021 Influenza for age 65+ 01/30/2024 02/08/2023 , 02/09/2022, 02/19/2021, Additional history exists BMI (ht and wt on same day) for age 18+ 02/09/2024 02/08/2023, 11/03/2022, 08/19/2022, Additional history exists Mammogram for age 45-75 09/28/2024 09/29/19 24, 08/19/2022, 07/03/2021, Additional history exists Lipids for age 45-75 08/20/2027 08/19/2022, 02/19/2021, 11/01/2019, Additional history exists Tetanus booster 10/31/2029 11/01/2019, 07/29, 12/31/1999, Additional history exists Colonoscopy through age 75 11/25/202911/25, 11/25/2022, 11/25/2022, Additional history exists Hepatitis C screening for ag e 18-79 Completed 11/01/2019 Tdap Completed 11/01/2019, 08/15/2009 DEXA/DXA scan for age 65+ Completed 02/26/2021 Zoster (shingles) series for age 50+ Completed 07/03/2021, 04/16/2021 Pneumococcal series for age 65+ Completed 3, 02/19/2021 COVID-19 vaccine series Completed 04/02/20 23, 12/02/2022, 02/27/2022, Additional history exists Procedures Procedure Name Priority Date/Time Associated Diagnosis Comments INFLUENZA A/B PCR Routine 10/15/2023 7:3 0 PM CDT Influenza-like illness COVID-19 MOLECULAR Routine 10/15/2023 7: 30 PM CDT Influenza-like illness COVID-19 MOLECULAR Routine 10/13/2023 2: 16 PM CDT Rhinitis, unspecified type XR MAMMO LETTY BILAT SCREEN Routine 09/29/2023 11:14 AM CDT Routine adult health maintenance COLONOSCOPY SCREENING Routine 11/25/2022 9:37 AM CDT Polyp of colon, unspecified part of colon, unspecified type LC LIPID PANEL AND CHOL/HDL RATIO Routine 08/19/2022 11:41 AM CDT Mixed hyperlipidemia XR DXA BONE DENSITY 2 SITES AXIAL Routine 02/26/2021 11:16 AM CDT Menopause ANTI HCV Routine 11/01/2019 12:11 PM CDT Need for hepatitis C screening test from Last 3 Months or Most Recently Relevant to Health Maintenance Results * COVID-19 MOLECULAR (10/15/2023 7:30 PM CDT) Only the most recent of2 resultswithin the time period is included. COVID 19 [facility] Negative Negative 10/16/2023 4:17 PM CDT [facility] Comment:All PCR tests are leigh bject to false negative result due to variability in viral load and collection technique. A negative result does not rule out a SARS-CoV-2 infection. Clinical correlation required. TESTING LABORATORY [facility] 10/16/2023 4:17 PM CDT [facility] Comment:Specimen submitted t o [facility] for testing. Other SPECIMEN FROM NASOPHARYNGEAL STRUCTURE / Unknown Non-Blood / Unknown 10/15/2023 7:30 PM CDT 10/15/2023 8:05 PM CDT Gisella Santizo NP MICROBIOLOGY Performing Organization Address [facility] Co de Phone Number [facility] [address] [place] [phone], * INFLUENZA A/B PCR (10/15/2023 7:30 PM CDT) INFLUENZA A PCR Negative 10/16/2023 4:17 PM CDT [facility] INFLUENZA B PCR Negative 10/16/2023 4:17 PM CDT [facility] Other SPECIMEN FROM NASOPHARYNGEAL STRUCTURE / Unknown Non-Blood / Unknown 10/15/2023 7:30 PM CDT 10/15/2023 8:05 PM CDT Gisella Santizo NP MICROBIOLOGY Performing Organization Address [facility] de Phone Number [facility] [address] [place] [address], [place] * XR MAMMO LETTY BILAT SCREEN (09/29/2023 11:14 AM CDT) Anatomical Region Laterality Modality BREASTS, Breast Left, Breast Right Bilateral Mammography Impressions 09/29/2023 3:19 PM CDT ??There is no radiographic evidence for malignancy. ??Recommend annual mammograms. MAMMOGRAM ASSESSMENT: ??ACR 1 Negative PATIENTS: You will also receive a letter with your examination results in an easy to read format. ??If you have questions about your results, please contact your referring provider. Narrative 09/29/2023 3:19 PM CDT For Patients: As a result of the Century Cures Act, medical imaging exams and procedure reports are released immediately into your electronic medical record. You may view this report before your referring provider. If you have questions, please contact your health care provider. XR MAMMO LETTY BILAT SCREEN [[id number]] CLINICAL HISTORY: ??This is an asymptomatic 67 y.o. patient. INDICATION FOR EXAM: Mammogram Screening. TECHNIQUE: CC & MLO views were obtained. ??This study was evaluated with the assistance of Computer-Aided Detection. Breast Tomosynthesis was used in interpretation. COMPARISON FILM: Yes 08/19/22 [facility] 07/03/21 [facility] FINDINGS: ??The breasts have scattered areas of fibroglandular density. There are no dominant masses, suspicious micro calcifications or areas of architectural distortion. Nandini Smallwood DO MAMMO * COLONOSCOPY (11/25/2022 9:36 AM CDT) 11/25/2022 9:36 AM CDT Narrative Transcriptions Wiliam Liu MD - 11/25/2022 11:40 AM CDT Patient Name: Tere Solano Procedure Date: 11/25/2022 Gender: Female Date of : 1955 Admit Type: Outpatient Procedure: Colonoscopy Proceduralist: Wiliam Liu MD , Liilana Yost RN (Nurse), Geeta Patton RN (Nurse) Referring MD: Filomena Evangelista Indications/Pre-Op Diagnosis: High risk colon cancer surveillance:Personal history of adenoma less than 10 mm in size, High risk colon cancer surveillance:Personal history of sessile serrated colon polyp(less than 10 mm in size) with no dysplasia, Last colonoscopy: April 2015 Medications: Fentanyl 100 micrograms IV, Midazolam 3 mgIV, The level of sedation administered wasmoderate Procedure Description: The patient had risks, benefits and alternatives explained to andgave informed consent. The patient had a stable cardiopulmonary status and judged an adequate candidate for conscious sedation. The endoscope [id number] was passed through the anus andadvanced to the cecum, identified by appendiceal orifice and ileocecal valve.The colonoscopy was performed without difficulty. The patient toleratedthe procedure well. The quality of the bowel preparation was good. The ileocecal valve, appendiceal orifice, and rectum were photographed. Complications: No immediate complications. Estimated Blood Loss & Specimen: Estimated blood loss: none. Specimen collected - None Findings: The perianal and digital rectal examinations were normal. The colon (entire examined portion) was significantly redundant. The exam was otherwise without abnormality. Impressions/Post-Op Diagnosis: - Redundant colon. - The examination was otherwise normal. - No specimens collected. Recommendation: - Patient has a contact number available for emergencies. The signsand symptoms of potential delayed complications were discussed with the patient. Return to normal activities tomorrow. Written discharge instructions were provided to the patient. - Resume previous diet. - Continue present medications. - Repeat colonoscopy in 7-10 years for surveillance with an adultscope. - Patient's sedation for a repeat study will require Anesthesia staff assistance. Moderate Sedation: A time out was performed before the procedure. Moderate (conscious) sedation was administered by the endoscopy nurse and supervised bythe endoscopist. The following parameters were monitored: oxygensaturation, heart rate, blood pressure, EKG, CO2, respiratory rate, adequacy of pulmonary ventilation and reponse to care. Please refer to the patient's medical record flowsheets and nursing notes for moderate sedation details. Total physician intraservice time was 24 minutes. Wiliam Liu MD 11/25/2022 11:40:25 AM This report has been signed electronically. Note Initiated On: 11/25/2022 9:36 AM Procedure Code(s): --- Professional --- 71867, Colonoscopy, flexible; diagnostic, including collection of specimen(s) bybrushing or washing, when performed (separateprocedure) Diagnosis Code(s): --- Professional --- Z86.010, Personal history of colonicpolyps Q43.8, Other specified congenitalmalformations of intestine CPT copyright 2021 [employer]. All rights reserved. The codes documented in this report are preliminary and upon blueprint machine operator reviewmay be revised to meet current compliance requirements. Wiliam Liu MD PROCEDURE ORD * (ABNORMAL) LC LIPID PANEL AND CHOL/HDL RATIO (08/19/2022 11:41 AM CDT) [facility] Cholesterol, Total 205(H) 100 - 199 mg/dL 08/21/2022 10:10 AM T [facility] Triglycerides 208(H) 0 - 149 mg/dL 08/21/2022 10:10 AM [facility] HDL Cholesterol 53 >39 mg/dL 10:10 AM [facility] ([facility] VLDL Cholesterol Ricardo 36 5 - 40 mg/dL 08/21/2022 10:10 AM [facility] ([facility] LDL Chol Calc (NIH) 116(H) 0 - 99 mg/dL 08/21/2022 10:10 AM [facility] ([facility] T. Chol/HDL Ratio 3.9 0.0 - 4.4 ratio 08/21/2022 10:10 AM [facility] ([facility] Comment: ?T. Chol/HDL Ratio ?Men ??Women ?1/2 Avg.Risk ??3.4 ?3.3 ?Avg.Risk ??5.0 ?4.4 ? 2X Avg.Risk ??9.6 ?7.1 ? 3X Avg.Risk 23.4 ?? 11.0 Blood BLOOD SPECIMEN / Unknown Venipuncture / Unknown 08/19/2022 11:41 AM CDT 08/19/2022 11:41 AM CDT Narrative [facility] ([facility] - 08/21/2022 10:10 AM CDT Performed at: ??[address] [place], [place] ??[id number] [employer] Cashier: Marcellus Chand MD, Phone: ??[phone] Filomena GARLAND SEND OUTS [facility] ([facility]) [address] [place] [address] * (ABNORMAL) XR DXA BONE DENSITY 2 SITES AXIAL (02/26/2021 11:16 AM CDT) Anatomical Region Laterality Modality Spine, HIPS, HIPL, HIPR Other Impressions 03/04/2021 12:52 PM CDT Osteopenia. RECOMMENDATIONS: The National Osteoporosis Foundation recommends pharmacologic treatment for patients with T-scores of -2.5 or less, patients with prior history of fragility fractures, or patients with 10-year probability of greater than 3% at hips or greater than 20% of suffering major osteoporotic fractures. Recommend continued optimization of calcium and vitamin D intake through dietary means and/or supplementation and regular exercise. Repeat scan recommended in 3-5 years. Zeina Jordan PA-C [facility] 03/04/2021 Narrative 03/04/2021 12:52 PM CDT For Patients: Results are automatically released to your myhub ([facility]) account once available, in compliance with federal regulations. This means that you may see your results before your provider has had a chance to review them. Please allow 2-3 business days for your provider to comment on the results. XR DXA Bone Mineral Density (BMD) EXAM LOCATION: [facility] [address] [facility] [address] PATIENT NAME: Tere Solano DATE OF : 1955 EXAM DATE: 02/26/2021 REQUESTING PROVIDER: Filomena Evangelista PA GENDER AT : female HEIGHT: 5' 1.81 (02/19/2021) WEIGHT: ??187 lb (02/19/2021) MENOPAUSAL STATUS: Postmenopausal RACE/ETHNICITY: White RISK FACTORS: White Race CURRENT MEDICATION FOR BONE LOSS: NONE INDICATION: Screening for osteoporosis COMPARISON DATE(S): None DXA scans are compared to prior studies for a patient only when the two (or more) studies were performed on the same scanner. It is not possible to compare data generated on one scanner to data from another because there are not standards in DXA equipment. This applies even if the two scanners are made by the same buffing machine operator semiautomatic. PROCEDURE: Dual-energy x-ray absorptiometry performed with routine technique. Reporting is completed in the form of a T-score. The T-score represents the standard deviation from peak bone mass based on young healthy adult. A Z-score is used for diagnosis in premenopausal women, and for men under the age of 50. FINDINGS: RESULT LUMBAR SPINE L1 - L4 ??BMD: 1.022 g/cm2 T-Score: - 1.4 Z-Score: - 0.5 Change from prior: ??None RESULTS FEMUR Left femoral neck BMD: 0.888 g/cm2 T-Score: - 1.1 Z-Score: + 0.0 Change from prior: ??None Right femoral neck BMD: 0.907 g/cm2 T-Score: - 0.9 Z-Score: + 0.1 Change from prior: ??None Left hip BMD: 0.980 g/cm2 T-Score: - 0.2 Z-Score: + 0.5 Change from prior: ??None Right hip BMD: 0.960 g/cm2 T-Score: - 0.4 Z-Score: + 0.3 Change from prior: ??None WHO criteria: Normal: T-score at or above -1 SD Osteopenia: T-score between -1.1 and -2.4 SD Osteoporosis: T-score at or below -2.5 SD FRAX RISK CALCULATION (USED FOR OSTEOPENIA ONLY): 10-year probability of major osteoporotic fracture: 7.6%. 10-year probability of hip fracture: 0.6%. Filomena GARLAND DEXA * ANTI HCV (11/01/2019 12:11 PM CDT) HEPATITIS C ANTIBODY Non-React vahid Non-React vahid 11/01/2019 8:33 PM CDT [facility] Comment:Antibodies to HCV no t detected; does not exclude the possibility of exposure to HCV. Blood BLOOD SPECIMEN / Unknown Venipuncture / Unknown 11/01/2019 12:11 PM CDT 11/01/2019 12:11 PM CDT Filomena GARLAND [facility] [address] [place] [address], from Last 3 Months or Most Recently Relevant to Health Maintenance Care Teams Paper Twister Relationship Specialty Start Date End Date Nandini Smallwood DO [address] [place] [address] PCP - General Family Practice 02/08/23
--- OUTSIDE RECORDS SUMMARY | 2023-10-25 20:41 | XMS_ITS | Clinical Summary ---
Author Organization [facility] Address [address] [place] [address] Care Team Providers Care Firewall Engineer Name Role Phone Unavailable Primary Care Provider Unavailabl e Source Comments Patient records contain information from all sites at [facility]. For routine questions regarding patient records, call [phone] during business hours, M-F 8:00 AM - 5:00 PM Central Time. Record requests for emergency care only can be directed to [phone] at any time.[facility] Allergies Active Allergy Reactions Criticality Noted Date Comments Latex Rash 01/13/2013 pt preference Sulfacetamide Other (see comments) 12/08/2006 sulfa eye drops cause eye redness Medications Medication Sig Dispensed Refills Start Date End Date Status omega 7-fjz-sks-fish oil (Fish Oil) 1,000 mg (120 mg-180 mg) capsule Take 1 capsule by mouth at bedtime. 01/13/2013 Active oxymetazoline HCl (NASAL SPRAY SINUS NASAL) Administer 2 sprays into nostril(s) as needed. 12/26/2012 Active acetaminophen (TYLENOL) 500 mg tablet Take 500 mg by mouth. 03/06/2013 Active amitriptyline (ELAVIL) 25 mg tablet Take 25 mg by mouth. 11/01/2019 Acti ve atorvastatin (LIPITOR) 20 mg tablet Take 20 mg by mouth. 08/08/2019 Acti ve cetirizine (ZyrTEC) 10 mg tablet Take 10 mg by mouth. 07/19/2019 Ac tive gabapentin (NEURONTIN) 100 mg capsule Take 100 mg by mouth. 01/01/2020 Active HYDROcodone-acetamin ophen (NORCO) 5-325 mg per tablet Take 1 tablet by mouth. 12/29/2019 Active multivitamin tablet Take 1 tablet by mouth every morning. 01/13/2013 Active peg 400-propylene glycol (SYSTANE) 0.4-0.3 % ophthalmic solution Administer 1 drop into affected eye(s). 08/10/2018 Active cholecalciferol, vitamin D3, (cholecalciferol) 1,000 Unit tablet Take 1,000 Units by mouth daily. Active Active Problems No known active problems Social History Tobacco Use Types Packs/Day Years Used Date Smoking Tobacco: Never Smokeless Tobacco: Never Nutrition Answer Date Recorded Nutrition: EVOO Fat Source Unknown 08/02 Nutrition: Servings of Fruits/Vegetables per Day Not on file 08/02/2020 Dental Answer Date Recorded Dental: Regular Dentist Unknown 08/03/19 21 Sex and Gender Information Value Date Recorded Sex Assigned at Not on file Gender Identity Not on file Sexual Orientation Not on file Last Filed Vital Signs Vital Sign Reading Time Taken Comments Blood Pressure 143/74 01/04/2020 3:57 PM CDT Pulse 89 01/04/2020 3:57 PM CDT Temperature 36.5 ??C (97.7 ??F) 01/04/2020 3 :57 PM CDT Respiratory Rate 16 01/17/2013 8:04 AM CDT Oxygen Saturation 96% 01/04/2020 3:5 7 PM CDT Inhaled Oxygen Concentration - - Weight 73.9 kg (162 lb 14.7 oz) 01/16/2013 9:14 AM CDT Height 156 cm (5' 1.42) 01/16/2013 12: 38 PM CDT Lexi Nelson CRNA Body Mass Index 30.37 01/16/2013 9:14 AM CDT Plan of Treatment Health Maintenance Due Date Last Done Comments Bone Density Scan (Osteoporo sis Screen) 1955 CT Colonography 1955 Cologuard 1955 FIT 1955 Hepatitis C Screening 1955 Depression Screening (Annual PHQ-2) 05/31/2023 Fall Risk Screen (Annual) 05/31/2023 COVID-19 Vaccine (2022-2 4 season) 2023 04/02/2023, 12/02/2022, 02/27/2022, Additional history exists Mammogram 08/20/2023 08/19/2022, 07/03/2021 Fasting Glucose for Diabetes Screening 08/19/2025 08/19/2022, 02/19/2021, 11/01/2019, Additional history exists DTaP,Tdap,and Td Vaccines (3 - Td or Tdap) 10/31/2029 11/01/2019, 08/15/2009, 12/31/1999 Colonoscopy 11/25/2032 11/25/2022, 11/30/2019 Colorectal Cancer Screening 11/25/2032 Zoster Vaccines Completed 07/03/2021, 04/16/2021 Pneumococcal vaccine (65+ years) Completed 08/06/19, 02/19/2021 Influenza Vaccine Completed 02/08/2023, , 02/19/2021, Additional history exists Medical Devices Implanted Type Area Welder Fabricator Device Identifier Shelf Expiration Date Model / Serial / Lot Align Sling Retropubic - Ortiz [id number] Implanted:Qty: 1 on 01/16/2013 Urogenital Implant Other/Legacy - See Implant Description Description:Device Manufactu rer - [employer] [facility]. Body Location - Other. Not Applicable. Device Status Text - [id number]. Procedures Procedure Name Priority Date/Time Associated Diagnosis Comments EXTI BASIC METABOLIC PANEL, S/P Routine 08/19/2022 11:41 AM CDT BI BREAST SCREENING BILATERAL WITH TOMOSYNTHESIS RAD - Routine (most inpatients and all outpatients) 08/19/2022 10:14 AM CDT from Last 3 Months or Most Recently Relevant to Health Maintenance
--- OUTSIDE RECORDS SUMMARY | 2023-10-25 20:41 | XMS_ITS | Referral Summary ---
Author Organization [facility] Address [address] [place] [address] Care Team Providers Care Education Coordinator Name Role Phone Unavailable Primary Care Provider Unavailabl e Source Comments Patient records contain information from all sites at [facility]. For routine questions regarding patient records, call [phone] during business hours, M-F 8:00 AM - 5:00 PM Central Time. Record requests for emergency care only can be directed to [phone] at any time.[facility] Allergies Active Allergy Reactions Criticality Noted Date Comments Latex Rash 01/13/2013 pt preference Sulfacetamide Other (see comments) 12/08/2006 sulfa eye drops cause eye redness Medications Medication Sig Dispensed Refills Start Date End Date Status omega 9-enb-lam-fish oil (Fish Oil) 1,000 mg (120 mg-180 [...] Date Recorded Dental: Regular Dentist Unknown 08/03/19 Sex and Gender Information Value Date Recorded [...] 01/16/2013 9:14 AM CDT Plan of Treatment Not on file Medical Devices Implanted Type Area Operational Test Mechanic Device Identifier Shelf Expiration Date Model / Serial / Lot Align Sling Retropubic - Ortiz [id number] Implanted:Qty: 1 on 01/16/2013 Urogenital Implant Other/Legacy - See Implant Description Description:Device Manufactu rer - [employer] [facility]. Body Location - Other. Not Applicable. Device Status Text - [id number]. Procedures Procedure Name Priority Date/Time Associated Diagnosis Comments EXTI BASIC METABOLIC PANEL, S/P Routine 08/19/2022 11:41 AM CDT BI BREAST SCREENING BILATERAL WITH TOMOSYNTHESIS RAD - Routine (most inpatients and all outpatients) 08/19/2022 10:14 AM CDT from Last 3 Months or Most Recently Relevant to Health Maintenance
--- OUTSIDE RECORDS SUMMARY | 2023-10-25 20:41 | XMS_ITS ---
Author Organization [facility] Address [address] [place] [address] Care Team Providers Care Logistics Support Name Role Phone Unavailable Unavailable Unavailable Surgery Details Not on file Complications Check Surgery Details section. Procedure Estimated Blood Loss Check Surgery Details section. Procedure Findings Check Surgery Details section. Procedure Specimens Taken Check Surgery Details section.
[2023-10-25] MEDS: ACETAMINOPHEN 500 MG TABLET 1000 MG PO (21:09)
[2023-10-25 21:36] VITALS: BP 142/84; PULSE 83; RESP 16; O2SAT 96
== END 2023-10-25 21:38 | disposition home or self-care (01) ==
PROVIDERS: Emergency Provider Emergency Medicine; PCP Family Medicine
DX: R50.9 Fever, unspecified (principal); R09.81 Nasal congestion
CPT/HCPCS: 71046; 99282; 99283; A9270